=== PATIENT | female | born 1945 | race Two or more races ===

== ENCOUNTER 2023-04-17 18:15 | Emergency (ER) | payer OTHER ==
[~2023-04-17] VITALS: Ht 165.1 cm; Wt 67.1 kg
[2023-04-17] MEDS ORDERED: COZAAR100 MG (18:32)
[2023-04-17] MEDS ORDERED: TOPROL XL50 M1 (18:32)
[2023-04-17] MEDS ORDERED: PLAVIX75 MG (18:33)
[2023-04-17] MEDS ORDERED: ATORVASTATIN CA10 MG (18:34)
[2023-04-17] MEDS ORDERED: ZOLOFT25 MG (18:34)
[2023-04-17] MEDS ORDERED: DOLOGESIC 500-1 EACH PO (21:20)
== END 2023-04-17 21:40 | disposition home or self-care (01) ==
LOC: ER 18:16
DX: S01.81XA Laceration without foreign body of other part of head, initial encounter (principal); S09.90XA Unspecified injury of head, initial encounter; W19.XXXA Unspecified fall, initial encounter; Y93.89 Activity, other specified; Y92.091 Bathroom in other non-institutional residence as the place of occurrence of the external cause; Y99.8 Other external cause status; I10 Essential (primary) hypertension; Z88.6 Allergy status to analgesic agent; Z91.013 Allergy to seafood; Z91.041 Radiographic dye allergy status